=== PATIENT | female | born 1960 | race Caucasian/White ===

== ENCOUNTER 2021-10-25 18:19 | Emergency (ER) | payer OTHER, SELFPAY ==
[2021-10-25 18:33] VITALS: BP 122/66; PULSE 89; RESP 16; TEMP 36.3; O2SAT 95
--- NOTE | 2021-10-25 18:33 | ED.FEMALEGU ---
HPI - Female Genitourinary General Chief complaint: Urogenital-Female Stated complaint: uti Time Seen by Provider: 10/25/21 19:15 Source: patient and RN notes reviewed Mode of arrival: ambulatory Limitations: no limitations History of Present Illness HPI Narrative: 7-year-old female presents for concern for low back pain, dysuria, frequency, urgency, hematuria. Reports symptoms started yesterday she denies taking any oaoi-ejd-atmyist medications for treatment. She reports history of urinary tract infections. Also reports history of kidney stones. Reports this pain does not feel like her kidney stone symptoms. MD elicited complaint: UTI Related Data Home Medications Medication Instructions Recorded Confirmed amlodipine 10 mg PO DAILY 10/25/21 10/25/21 benazepril 40 mg PO DAILY 10/25/21 10/25/21 budesonide-formoterol [Symbicort] 2 puff INHALATION DAILY 10/25/21 10/25/21 fluticasone propionate 2 spray INTRANASAL DAILY 10/25/21 10/25/21 furosemide 20 mg PO DAILY 10/25/21 10/25/21 ibuprofen 600 mg PO DAILY 10/25/21 10/25/21 levothyroxine 25 mcg PO DAILY 10/25/21 10/25/21 liraglutide [Victoza 2-Garrison] 0.6 mg SUBCUT DAILY 10/25/21 10/25/21 loratadine 10 mg PO DAILY 10/25/21 10/25/21 nystatin [Nystop] 1 applic TOPICAL DAILY 10/25/21 10/25/21 oxycodone-acetaminophen 1 tablet PO DAILY 10/25/21 10/25/21 rosuvastatin 5 mg PO DAILY 10/25/21 10/25/21 Allergies Allergy/AdvReac Type Severity Reaction Status Date / Time erythromycin base Allergy Mild Other Verified 10/25/21 19:15 Penicillins Allergy Mild Other Verified 10/25/21 18:52 Review of Systems Review of Systems: CONSTITUTIONAL: Denies malaise, chills, sweats, or fever. CARDIOVASCULAR: Denies chest pain, palpitations, or edema. RESPIRATORY: Denies cough or dyspnea. GASTROINTESTINAL: Denies abdominal pain, nausea, vomiting, diarrhea GENITOURINARY: Reports dysuria, frequency, urgency. Denies suprapubic pressure, flank pain or hematuria. SKIN: Denies rash or itching. MUSCULOSKELETAL: Reports mild low back pain. Denies myalgia. All systems reviewed & are unremarkable except as noted in HPI and below PMFSH Comments At time of signature, agree with nursing past medical, surgical, social and family history. There is no relevant family history pertinent to the presenting complaint Exam Narrative: GENERAL: Well-appearing, well-nourished, and in no acute distress. HEAD: Normocephalic. EYES: PERRLA, conjunctivae clear. NECK: Supple. No lymphadenopathy CHEST: Clear to auscultation. No respiratory distress. HEART: Regular rate and rhythm. SKIN: Warm, dry, no rash. NEURO: Alert and oriented x3. PSYCH: Normal mood and affect Course Course Emergency Course: Patient is aware of diagnosis, understands and agrees to treatment plan. Anticipatory guidance given. Patient agrees to follow-up as directed and is aware of reasons to seek care at the emergency department. Portions of this record may have been created with voice recognition software Level of Care: Express Care Visit Vital Signs Vital signs: Reviewed. MDM - Female Genitourinary MDM Narrative Medical decision making narrative: Exam findings and UA show no acute concerns or changes; patient is non-toxic appearing and is in no distress. Patient is appropriate for outpatient treatment and follow-up. Differential Diagnosis Differential diagnosis: Likely urinary tract infection and cystitis Critical Care Time Critical Care Time Critical Care Time: No Discharge Plan Discharge Clinical Impression: Urinary tract infection Qualifiers: Urinary tract infection type: site unspecified Hematuria presence: with hematuria Qualified Code(s): N39.0 - Urinary tract infection, site not specified Patient Disposition: Home, Self-Care Condition: Stable Instructions: Antibiotic Form, Urinary Tract Infection in Women (ED) Additional Instructions: We will send a urine culture to the lab; if the culture identifies an organism that
== END 2021-10-25 19:25 | disposition home or self-care (01) ==
PROVIDERS: Emergency Provider Nurse Practitioner
DX: N39.0 Urinary tract infection, site not specified (principal); E78.00 Pure hypercholesterolemia, unspecified; I10 Essential (primary) hypertension; J44.9 Chronic obstructive pulmonary disease, unspecified; E11.9 Type 2 diabetes mellitus without complications; E03.9 Hypothyroidism, unspecified
CPT/HCPCS: 81003; 87086; 87088; 99213; G0463